=== PATIENT | female | born 1990 | race Caucasian/White ===

== ENCOUNTER 2023-02-02 12:35 | Emergency (ER) | payer OTHER, SELFPAY ==
[2023-02-02 12:45] VITALS: BP 136/88; PULSE 98; RESP 16; TEMP 37.1; O2SAT 99
--- NOTE | 2023-02-02 13:12 | ED.EAR ---
HPI - Ear Problem General Chief complaint: Ear Stated complaint: Ear Problem/Dizziness Time Seen by Provider: 02/02/23 13:12 Source: patient, RN notes reviewed and old records reviewed Mode of arrival: ambulatory Limitations: no limitations History of Present Illness HPI Narrative: 32 year old female presents to [facility] care with complaints of sinus congestion, facial pressure, and pressure to ears which she states that she has been dealing with for months. Patient reports that since last week she has been having increased pressure to ears and sinus congestion with dizziness and also some nausea. She has been taking Tylenol, Ibuprofen and also decongestant. Patient denies any vomiting or diarrhea or any body aches. MD Complaint: other (sinus congestion, ear pressure, facial pressure) Location: bilateral Duration: constant Severity: moderate Discharge from ear: Reports no Treatment prior to arrival: other (decogestant, tylenol and Ibuprofen) Related Data Allergies Allergy/AdvReac Type Severity Reaction Status Date / Time No Known Allergies Allergy Verified 02/02/23 12:57 Review of Systems Review of Systems: CONSTITUTIONAL: Denies fever, chills, or sweats. EYES: Denies visual changes, redness, or discharge. ENT: Reports rhinorrhea, congestion,no sore throat, positive for ear pressure CARDIOVASCULAR: Denies chest pain, palpitations, or edema. RESPIRATORY: Denies cough or dyspnea. GASTROINTESTINAL: Denies abdominal pain, positive for nausea,no vomiting, or diarrhea. GENITOURINARY: Denies dysuria or hematuria. SKIN: Denies rash or itching. MUSCULOSKELETAL: Denies back pain, joint pain, or myalgia. NEUROLOGIC: Denies headache, numbness, or weakness.reports some dizziness PSYCHIATRIC: Denies anxiety or depression. All systems reviewed & are unremarkable except as noted in HPI and below PMFSH Social History Social History (Updated 02/05/23 @ 08:35 by Aleta Thompson NP) Smoking status: Never smoker Alcohol intake: current Alcohol use details: social Substance use type: does not use Living arrangements: with family Gender identity (if verbalized by the patient): Female Comments At time of signature, agree with nursing past medical, surgical, social and family history. There is no relevant family history pertinent to the presenting complaint Exam Narrative: GENERAL: Well-appearing, well-nourished, and in no acute distress. HEAD: Normocephalic, atraumatic. EYES: PERRLA and EOMI.; ENT: Nares clear,clear rhinorrhea no epistaxis. Mucous membranes moist.TM's normal with dull light reflex, throat pink with no swelling post nasal discharge noted NECK: Supple.no lymphadenopathy CHEST: Clear to auscultation. No respiratory distress.SAO2 99% on room air HEART: Regular rate and rhythm. No murmur heard. Normal peripheral pulses. ABDOMEN: Soft, nontender, nondistended, normal active bowel sounds. EXTREMITIES: Normal range of motion. No edema. SKIN: Warm, dry, no rash. NEURO: No focal deficits. Alert and oriented x3. Course Course Emergency Course: Patient is aware of diagnosis, understands and agrees to treatment plan.? Anticipatory guidance given.? Patient agrees to follow-up as directed and is aware of reasons to seek care at the emergency department. Portions of this record may have been created with voice recognition software Level of Care: Express Care Visit Vital Signs Vital signs: Vital Signs Temperature 37.1 C 02/02/23 12:45 Pulse Rate 98 02/02/23 12:45 Respiratory Rate 16 02/02/23 12:45 Blood Pressure 136/88 02/02/23 12:45 Pulse Oximetry 99 02/02/23 12:45 Oxygen Delivery Room Air 02/02/23 12:45 Temperature 37.1 C 02/02/23 12:45 Pulse Rate 98 02/02/23 12:45 Respiratory Rate 16 02/02/23 12:45 Blood Pressure 136/88 02/02/23 12:45 Pulse Oximetry 99 02/02/23 12:45 Oxygen Delivery Room Air 02/02/23 12:45 Reviewed Medical Decision Making MDM Narrative Me
== END 2023-02-02 13:29 | disposition home or self-care (01) ==
PROVIDERS: Emergency Provider Registered Nurse
DX: J32.9 Chronic sinusitis, unspecified (principal); H69.93 Unspecified Eustachian tube disorder, bilateral
CPT/HCPCS: 99213; G0463

== ENCOUNTER 2023-03-23 06:12 | Emergency (ER) | payer OTHER, SELFPAY ==
[2023-03-23] VITALS (50 sets, daily range): BP systolic 96–121; BP diastolic 72–93; PULSE 94–125; RESP 11–30; TEMP 36.5; O2SAT 97–100
--- NOTE | ~2023-03-23 | CT_ITS ---
EXAMINATION: CTA chest PE protocol DATE: 03/23/2023 10:01 INDICATION: Chest pain. Tachycardia. TECHNIQUE: Computed tomography angiography (CTA) of the chest was performed with 100 mL Omnipaque-350 intravenous contrast timed to evaluate the pulmonary arteries. Coronal maximum intensity projection 3D-reconstructions were created by the technologist. Automated exposure control and iterative reconst ruction technique were employed. The dose-length product was 317.59 mGy-cm. COMPARISON: None. FINDINGS: The visualized portions of the lung bases demonstrate mild atelectasis. No pleural effusion . The heart size is normal. No pericardial effusion. There is no pulmonary embolus. There is mild tho racic spondylosis. IMPRESSION: 1. No pulmonary embolus. Reviewed, dictated and finalized at location A. M BUNDLER IMPRESSION: 1. No pulmonary embolus.
--- NOTE | ~2023-03-23 | XR_ITS ---
Portable chest x-ray Comparison: None Clinical History: Palpitations Findings: Lungs are clear, without focal consolidation or pleural effusion. Cardiomediastinal silho uette is unremarkable. Bones and soft tissues are unremarkable. Impression: Normal chest. Reviewed, dictated and finalized at location M. ULAR RADIOLOGIST Impression: Normal chest.
--- NOTE | 2023-03-23 06:19 | ECG_ITS ---
Measurements Intervals [place] Rate: 122 P: 53 MT: 148 QRS: 46 QRSD: 78 T: -19 QT: 250 QTc: 357 Interpretive Statements SINUS TACHYCARDIA NONSPECIFIC ST & T-WAVE ABNORMALITY- ANTEROLAT/INF LEADS ABNORMAL ECG NO PREVIOUS ECG AVAILABLE FOR COMPARISON Electronically Signed On 03-23-2023 6:46:27 CUSTOMER ENGINEERING SPECIALIST by Issa Corral D.O.
[2023-03-23 06:35] LABS: Basophils Percent Auto 0.3 % (0.2-1.2); Eosinophils Absolute Auto 0.2 K/mm3 (0-0.3); Eosinophils Percent Auto 2.4 % (0-4.4); Hematocrit 39.7 % (37.0-47.0); Immature Granulocyte Absolute 0.02 K/mm3 (0.00-0.031); Immature Granulocyte Percent A 0.3 % (0-0.5); Lymphocytes Absolute Auto 2.09 K/mm3 (0.9-3.2); Lymphocytes Percent Auto 30.9 % (18.3-44.2); Mean Corpuscular HGB Conc 32.7 g/dl (32-36); Mean Corpuscular Hemoglobin 29.1 pg (26-34); Monocytes Absolute Auto 0.4 K/mm3 (0.1-0.6); Monocytes Percent Auto 5.6 % (2.6-8.5); Neutrophils Absolute Auto 4.1 K/mm3 (1.3-6.7); Neutrophils Percent Auto 60.5 % (45.5-73.1); Platelet Count Result 289 k/mm3 (150-375); Red Blood Count 4.46 M/mm3 (4.2-5.4); White Blood Count 6.8 K/mm3 (4.5-10.0)
[2023-03-23 06:47] LABS: Alanine Aminotransferase 27 U/L (6-35); Albumin Level 4.2 g/dL (3.5-5.1); Alkaline Phosphatase 62 U/L (38-126); Anion Gap 8 mmol/L (8-16); Aspartate Amino Transferase 28 U/L (14-36); Bilirubin,Total 0.4 mg/dL (0.2-1.3); Blood Urea Nitrogen 11 mg/dL (7-17); Calcium 9.2 mg/dL (8.4-10.2); Carbon Dioxide 25 mmol/L (22-30); Chloride 106 mmol/L (98-107); Estimated CRCL calculation 106 ml/min; Estimated Glomerular Filt Rate > 60; Glucose 108 mg/dL (65-110); Lipase 133 U/L (23-300); Potassium 3.3 mmol/L (3.4-5.0); Sodium 139 mmol/L (137-145)
[2023-03-23 06:59] LABS: Troponin I 0.033 ng/mL (0.000-0.034)
[2023-03-23 07:07] LABS: INR 0.9
[2023-03-23 07:08] LABS: Partial Thromboplastin Time 28.7 SECONDS (22.3-36.8)
[2023-03-23] MEDS: SODIUM CHLORIDE 0.9% IV 1,000 ML 999 ML IV CONT (07:30)
--- NOTE | 2023-03-23 08:13 | ED.ARRPALP ---
HPI - Arrhythmia/Palpitations General Chief Complaint: Arrhythmia/Palpitations Stated Complaint: PALPITATIONS, SVT Time Seen by Provider: 03/23/23 06:51 History of Present Illness HPI narrative: 32 old female presents emergency department for evaluation of tachycardia. Patient states she has had some chest pressure for the last few days. Patient states that when she woke up this morning she was noted to have a rapid heart rate. Patient did call EMS. Patient was treated with 6 mg of Adenocard with no conversion but she was treated with 12 mg of IV Adenocard and patient converted back to norm normal sinus rhythm. Upon arrival to the emergency department patient is in sinus tach and is anxious appearing. Patient is still complaining of some chest pressure. Patient has no prior history of cardiac history patient has no prior history of PE or DVT. Patient denies any shortness of breath. Related Data Allergies Allergy/AdvReac Type Severity Reaction Status Date / Time No Known Allergies Allergy Verified 02/02/23 12:57 Review of Systems Review of Systems: All systems reviewed & are unremarkable except as noted in HPI and below PMFSH Social History Social History (Updated 02/05/23 @ 08:35 by Aleta Thompson NP) Smoking status: Never smoker Alcohol intake: current Alcohol use details: social Substance use type: does not use Living arrangements: with family Gender identity (if verbalized by the patient): Female Exam Narrative: APPEARANCE: Well appearing, no pain, no distress, well-nourished. HEAD: normocephalic, atraumatic. EYES: PERRLA/EOMI, conjunctivae clear. NOSE: Normal no drainage EARS:TMS clear with good light reflex. THROAT: Pharynx clear, no exudate. NECK: Supple. No adenopathy, no masses. RESPIRATORY: Airway patent, respirations nonlabored. Clear to auscultation bilaterally, no rales, rhonchi, wheezing. CARDIOVASCULAR: Regular rate and rhythm without murmurs rubs or gallops. ABDOMINAL: Soft, nontender, nondistended, normal bowel sounds MUSCULOSKELETAL: Moves all extremities. Strength/ROM intact, No edema, No calf tenderness. NEURO: Alert. Cranial nerves II through XII intact. Grossly intact SKIN: Warm, dry. Normal Color Course Course Emergency Course: [age] old female presenting to the emergency department for evaluation of rapid heart rate. Patient's presumed SVT was resolve with Adenocard by EMS. Upon arrival to the emergency department patient was still having some sinus tach but this did improve with rehydration and with Ativan. Patient's initial troponin was at the high end of normal of 0.033. Patient's initial D-dimer was 0.41 but due to clinical discern for a PE CTA study was ordered that showed no evidence of pulmonary embolism. Patient's 3 hour troponin was elevated at 0.083. On re-evaluation patient denies any chest pain and states she does still have some epigastric pressure with no tenderness to palpation. I discussed the case with Cardiology and with the patient having no significant risk factors they were comfortable with the patient being started on a beta-lillian and having outpatient follow-up with Cardiology. They felt that having the heart rate in the 200s would be enough sustained tachycardia to cause a bump in her troponin. Patient was updated on the results the workup and on discussion with Cardiology and patient was encouraged to have close follow-up. All questions concerns were addressed. Patient will also be started metoprolol b.i.d. Vital Signs Vital signs: Vital Signs Temperature 97.7 F 03/23/23 06:11 Pulse Rate 117 H 03/23/23 06:11 Respiratory Rate 17 03/23/23 06:11 Blood Pressure 119/93 H 03/23/23 06:11 Pulse Oximetry 100 03/23/23 06:11 Oxygen Delivery Room Air 03/23/23 06:11 Temperature 97.7 F 03/23/23 06:11 Pulse Rate 94 03/23/23 12:42 Respiratory Rate 16 03/23/23 12:42 Blood Pressure 110/89 03/23/23 12:42 Pulse Oxi
[2023-03-23] MEDS: LORazepam INJ (*CRX) 2 MG/ML VIAL 1 MG IV PUSH (08:55)
[2023-03-23 09:23] LABS: D Dimer 0.41 ug/mL (<0.48)
[2023-03-23 10:59] LABS: Troponin I 0.083 ng/mL (0.000-0.034)
--- NOTE | 2023-03-23 11:19 | ECG_ITS ---
Measurements Intervals [place] Rate: 104 P: 43 [place]: 148 QRS: 49 QRSD: 79 T: 11 QT: 314 QTc: 413 Interpretive Statements SINUS TACHYCARDIA NONSPECIFIC ST & T-WAVE ABNORMALITY- ANT/INF LEADS BORDERLINE ECG COMPARED TO ECG 03/23/2023 06:16:25 HEART RATE HAS DECREASED Electronically Signed On 03-23-2023 11:41:22 STOCK ANALYST by Issa Corral D.O.
--- NOTE | 2023-03-23 11:22 | PC.NURSE ---
lunch tray given to pt
[2023-03-23] MEDS: METOPROLOL TARTRATE 25 MG TABLET PO (12:06)
== END 2023-03-23 12:42 | disposition home or self-care (01) ==
PROVIDERS: Emergency Medicine; Emergency Provider Emergency Medicine
DX: R00.0 Tachycardia, unspecified (principal); R00.2 Palpitations
CPT/HCPCS: 36415; 71045; 71275; 80053; 81025; 83690; 84484; 85025; 85380; 85610; 85730; 93005; 96361; 96374; 99284; A9270; J2060; J7030; Q9967

== ENCOUNTER 2024-03-17 08:02 | Emergency (ER) | payer OTHER, SELFPAY ==
--- OUTSIDE RECORDS SUMMARY | 2024-03-17 08:05 | XMS_ITS | Clinical Summary ---
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 Gender Identity Not on file Sexual Orientation Not on file Plan of Treatment Health Maintenance Due Date Last Done Comments Hepatitis C Virus (HCV) Screening 1988 Hepatitis B Immunization (1 of 3 - 19+ 3-dose series) 11/07/2007 Pap Smear 2009 Cervical Cancer Screening (CCS) 2018 HPV/Cotest 2018 Influenza Immunization (#1) 2023 12/10/2021 SARS-COV-2 Immunization (2023- season) 2023 Respiratory Syncytial Virus (RSV) Immunization (Adult) (1 - 1-dose 75+ series) 11/07/2063 DTaP/Tdap/Td Immunization Discontinued 2021, 08/07/2018 Meningococcal Immunization (ACWY) Aged Out No longer eligible based on patient's age to complete this topic Pneumococcal Immunization Combined Aged Out No longer eligible based on patient's age to complete this topic Rotavirus Immunization Aged Out No lo nger eligible based on patient's age to complete this topic Insurance [employer]
--- OUTSIDE RECORDS SUMMARY | 2024-03-17 08:05 | XMS_ITS | Clinical Summary ---
Author Organization [facility] Address [address] [place] [address] Care Team Providers Care Airborne And Air Delivery Specialist Name Role Phone Ana Maria Parkinson MD Primary Care Provide r Choco Castaneda PT Unavailable Unavailab le Allergies Active Allergy Reactions Criticality Noted Date Comments Pineapple Swollen tongue High 2020 Medications metoprolol tartrate (LOPRESSOR) 25 mg immediate release tablet Take 1 tablet (25 mg total) by mouth 2 (two) times a day 180 tablet 3 04/18/2023 Active aspirin 81 mg enteric coated tablet Take 1 tablet (81 mg total) by mouth daily 90 tablet 09/21/2023 Active FLUoxetine 10 mg capsuleIndicati ons:PMS (premenstrual syndrome) TAKE ONE CAPSULE BY MOUTH EVERY DAY 90 capsule 01/11/2024 Active Active Problems Problem Noted Date Diagnosed Date 12/14/2023 Antepartum multigravida of advanced maternal age 1011/30/2023 Overview (01/26/2024): Given AMA and other moderate risk factor of BMI >30, recommend ASA 81 mg from 12 weeks until delivery. Considering NIPT - declines. PMS (premenstrual syndrome) 07/14/2023 Overview (11/30/2023): Daily fluoxetine. Elevated liver enzymes 07/06/2023 Overview (12/28/2023): Labs 06/30/23 - AST 51, ALT 98. Recheck 12/28/23 - AST 20. ALT 8. Negative hepatitis panel. Assessment & Plan (07/06/2023 4:58 PM CDT): New concern Not at goal Ordered Hepatitis acute panel, iron levels, hepatitis function panel If liver enzymes are still elevated on repeat labs we will get an ultrasound of the liver as well Follow-up pending results Left elbow pain 05/04/2023 Assessment & Plan (07/06/2023 4:43 PM CDT): Chronic S/p steroid pack PT and xrays No improvement Will send for MRI and referral to orthopedics F/u prn Assessment & Plan (05/04/2023 4:28 PM CDT): Chronic Worsening New concern Possible tendinitis Sent steroid pack for symptomatic relief Referral to physical therapy and xray of the left elbow F/u in 2 months, if no improvement will get an mri SVT (supraventricular tachycardia) 03/30/2023 Overview (11/30/2023): 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 Followed by cardiology - metoprolol. Recommend ASA 81 until 3 months post ablation. Assessment & Plan (05/04/2023 7:18 AM CDT): Stable Continue following with cardiology for management Palpitations 03/30/2023 Dizziness 05/10/2022 Encounter for psychiatric assessment 03/09/2022 Assessment & Plan (03/09/2022 6:28 PM WEAPONS ENGINEER): Psychiatric assessment was completed during the appointment today. All the paperwork completed by the patient was reviewed by me with the patient. All of the questions posed to me by the patient were answered. A treatment plan was developed in line with the information presented to me. Refer to specific problems for additional information regarding assessment and treatment recommendations. Atypical chest pain 02/24/2022 Assessment & Plan (02/24/2022 10:45 PM WEAPONS ENGINEER): Likely msk ekg in the past negative Will place referral to cardio for stress test F/u prn Tendinitis of left pectoralis major 09/28/2021 Assessment & Plan (09/28/2021 9:02 PM CDT): Continue with tylenol and and heat Physical therapy has not helped Will get an MRI. Will consider referral to pain management as the patient is and limited on medications. F/u prn Swollen lymph nodes 09/28/2021 Assessment & Plan (09/28/2021 9:09 PM CDT): Not appreciated on exam Likely from hormonal changes or from shaving Will continue to monitor for now If it becomes more persistent and prominent will consider imaging and Baseline labs Pain of right upper extremity 04/29/2021 Assessment & Plan (05/07/2021 10:40 AM CDT): No improvement even with flexeril Xray unremarkable Referral to physical therapy If no improvement will do mri and consider referral to ortho For forearm weakness also recommend physical therapy. If no improvement can consider EMG Assessment & Plan (04/29/2021 10:35 AM WEAPONS ENGINEER): Xray to evaluate for rotator cuff tear Flexeril for 7 days at night Continue with naproxen 500mg bid for a week with food Tylenol during the day if pain returns F/u in 1 week Anxiety 02/27/2021 Overview (06/15/2021): Received Xanax from PCP, only took x 1. Improved some with therapy sessions. Discussed risks/benefits of SSRIs in , which she will consider. Assessment & Plan (05/04/2023 4:14 PM CDT): Chronic Stable Continue with fluoxetine 10mg daily Assessment & Plan (03/09/2022 6:27 PM WEAPONS ENGINEER): Chronic condition with persistent symptoms. Medication changes today: None Insight-oriented, supportive counseling provided. Continued management as discussed Assessment & Plan (02/24/2022 2:40 PM WEAPONS ENGINEER): Continue with cognitive behavioral therapy Assessment & Plan (02/27/2021 9:04 AM WEAPONS ENGINEER): Worsening Referral to psychiatry for cognitive behavioral therapy Take xanax 0.25mg prn for panic attacks F/u prn Pain of left upper extremity 02/27/2021 Assessment & Plan (02/27/2021 9:04 AM WEAPONS ENGINEER): Likely musculoskeletal from carrying son, progressing Recommend alternating between ice and heat, naproxen 500mg bid for 7 days then prn Given stretching exercises and information on managing shoulder pain If no improvement can consider physical therapy F/u prn Acute left-sided low back pain without sciatica 11/25/2020 Assessment & Plan (11/25/2020 12:04 PM CDT): Likely msk 2/2 heavy lifting Instructed to take naproxen 500 mg twice a day with food. Cyclobenzaprine 5 mg at night for the next 7 days Referral for physical therapy given Follow-up as needed Wellness examination 11/25/2020 Assessment & Plan (05/04/2023 4:29 PM CDT): Ordered CBC, cmp, lipid a1c Pap smear follows with ob F/u in 1 year for annual Assessment & Plan (02/24/2022 10:46 PM WEAPONS ENGINEER): Ordered CBC, cmp, lipid, TSH w/ reflex to t4 Pap smear follows with ob F/u in 1 year for annual Assessment & Plan (11/25/2020 12:06 PM CDT): Ordered CBC as previous labs showed anemia, lipid, HIV, hep c, TSH, and free t4 Pap smear done 2 years ago within normal limits as per patient Tdap likely given 2 years ago as patient was at that time Flu patient declined Estimated Date of Delivery Comme nts Yes 06/21/2024 Based on last me nstrual period of 09/15/2023 (Exact Date) Resolved Problems Problem Noted Date Diagnosed Date Resolved Date Viral URI with cough 02/24/2022 024 Assessment & Plan (02/24/2022 10:44 PM WEAPONS ENGINEER): New worsening Covid, flu and strep negative Recommend fluids, rest, humidification if needed. She was instructed to call back if symptoms do not improved in a week, or if worsening ones arise. Education provided. 39 weeks gestation of 01/11/2022 02/25/2022 Anemia during in third trimester 10/29/2021 02/25/2022 Antepartum anemia 07/23/2018 12/11/2018 GBS bacteriuria 07/23/2018 12/11/2018 Overview (07/23/2018): Penicillin in labor Encounters Date Type Department Care Team Description 03/07/2024 8:15 AM WEAPONS ENGINEER Therapy [facility] [place] [address] Carrie Griffith, PT Female genital prolapse, unspecified type 03/07/2024 Plan of Care Documentation [facility] [place] [address] 02/24/2024 11:00 AM WEAPONS ENGINEER Office Visit [facility] [address] [place] [address] Kassy Rodriguez MD care, subsequent , second trimester (Primary Dx) 02/24/2024 Orders Only [facility] [address] [place] [address] Kassy Rodriguez MD Encounter for supervision of other normal , third trimester (Primary Dx); 28 weeks gestation of 02/07/2024 8:30 AM WEAPONS ENGINEER Ancillary Procedure [facility] [address] [place] [address] Encounter for maternal care for excessive growth in second trimester, single or unspecified fetus; 20 weeks gestation of 01/26/2024 9:20 AM WEAPONS ENGINEER Routine [facility] [address] [place] [address] Kassy Rodriguez MD care, subsequent , second trimester (Primary Dx) 01/26/2024 Orders Only [facility] [address] [place] [address] Kassy Rodriguez MD Encounter for maternal care for excessive growth in second trimester, single or unspecified fetus (Primary Dx); 20 weeks gestation of 01/09/2024 Telephone [facility] [address] [place] [address] Kassy Rodriguez MD Med Refill 12/29/2023 Telephone [facility] [address] [place] [address] Kassy Rodriguez MD 12/28/2023 8:10 AM WEAPONS ENGINEER Lab [facility] [address] [place] [address] Elevated liver enzymes; SVT (supraventricular tachycardia) (HCC); Pre-procedure lab exam; care, subsequent , first trimester; 13 weeks gestation of 12/26/2023 9:30 AM WEAPONS ENGINEER Routine [facility] [address] [place] [address] Kassy Rodriguez MD care, subsequent , second trimester (Primary Dx); Elevated liver enzymes 12/26/2023 Orders Only [facility] [address] [place] [address] Kassy Rodriguez MD Female genital prolapse, unspecified type (Primary Dx) from Last 3 Months Immunizations Name Administration Dates Next Due Influenza, Quadrivalent, Spl it, Intramuscular 12/30/2015 Influenza, Quadrivalent, Spl it, Preservative Free, Intramuscular 12/10/2021 Influenza, Unspecified 05/04/2023(Deferr ed: Patient Refused),09/28/2021(Deferred: Patient Refused),05/07/2021(Deferred: Patient Refused),04/29/2021(Deferred: Patient Refused),02/21/2021(Deferred: Patient Refused),11/25/2020(Deferred: Patient Refused),09/21/2020(Deferred: Patient Refused),09/21/2020(Deferred: Patient Refused),09/21/2020(Deferred: Patient Refused),09/21/2020(Deferred: Patient Refused),09/22/2019(Deferred: Patient Refused) Tdap 10/28/2021,08/07/2018,06/03/2016 Surgical History Surgery Date Site/Laterality Comments OTHER SURGICAL HISTORY No pertinent surgical hx NO PAST SURGERIES Medical History Medical History Date Comments Childhood asthma Anxiety SVT (supraventricular tachycardia) (HCC) Family History Medical History Relation Name Comments Alcohol abuse Father Sancho Depression Father Sancho Heart attack Father Sancho Heart disease Father Sancho Hypertension Father Sancho Memory loss Father Sancho Stroke Father Sancho Heart attack Mother Kavitha Heart disease Mother Kavitha Hypertension Mother Kavitha Brain cancer Other P 1st cousin Cancer, brain; Cause of : Cancer, brain Relation Name Status Comments Father Sancho Mother Kavitha Other P 1st cousin Social History Tobacco Use Types Packs/Day Years Used Date Smoking Tobacco: Never Smokeless Tobacco: Never Tobacco Cessation:Counseling Given: Not Answered Alcohol Use Standard Drinks/Week Comments Yes 0 (1 standard drink = 0.6 oz pur e alcohol) occasional / rare Social Connection and Isolat ion Panel [NHANES] Answer Date Recorded In a typical week, how many times do you talk on the phone with family, friends, or neighbors? Never 01/11/2022 How often do you get togethe r with friends or relatives? Once a week 01/11/2022 How often do you attend chur ch or rastafari services? 1 to 4 times per year 01/11/2022 Do you belong to any clubs o r organizations such as orthodoxy groups, unions, fraternal or athletic groups, or school groups? Yes 01/11/2022 How often do you attend meet ings of the clubs or organizations you belong to? More than 4 times per year 01/11/2022 Are you , , di vorced, , never , or living with a partner? 01/11/2022 AUDIT-C Answer Date Recorded Q1: How often do you have a drink containing alc ohol? Never 01/11/2022 Average Number of Drinks Not on file 022 Frequency of Binge Drinking Not on file 12/23 Overall Financial Resource Strain (CARDIA) Answe r Date Recorded How hard is it for you to pa y for the very basics like food, housing, medical care, and heating? Not hard at all 12/26/2023 PHQ-2 Answer Date Recorded PHQ-2 Total Score (If total score is 3 or more points, staff should administer the PHQ-9) 0 05/04/2023 [facility] - Occupational Stress Questionnaire Answer Date Recorded Do you feel stress - tense, restless, nervous, or anxious, or unable to sleep at night because your mind is troubled all the time - these days? Only a little 01/11/2022 Exercise Vital Sign Answer Date Recorde d On average, how many days pe r week do you engage in moderate to strenuous exercise (like a brisk walk)? 1 day 01/11/2022 On average, how many minutes do you engage in exercise at this level? 20 min 01/11/2022 Hunger Vital Sign Answer Date Recorded Within the past 12 months, y ou worried that your food would run out before you got the money to buy more. Never true 12/26/19 24 Within the past 12 months, t he food you bought just didn't last and you didn't have money to get more. Never true 12/26/2023 PRAPARE - Transportation Answer Date Re corded In the past 12 months, has l ack of transportation kept you from medical appointments or from getting medications? No 05/2023 In the past 12 months, has l ack of transportation kept you from meetings, work, or from getting things needed for daily living? No 12/26/2023 Housing Stability Vital Sign Answer Romero e Recorded In the last 12 months, was t here a time when you were not able to pay the mortgage or rent on time? No 01/11/2022 In the last 12 months, how many places have you lived? 1 01/11/2022 In the last 12 months, was t here a time when you did not have a steady place to sleep or slept in a snf (including now)? No 01/11/2022 Housing Stability Vital Sign Answer Romero e Recorded In the last 12 months, was t here a time when you were not able to pay the mortgage or rent on time? No 12/26/2023 In the past 12 months, how m any times have you moved where you were living? 1 12/26/2023 At any time in the past 12 m [facility], were you homeless or living in a snf (including now)? No 12/26/2023 Personal Safety Answer Date Recorded Have you ever been in or are you currently in a harmful physical or emotional relationship or is someone making you feel afraid or unsafe? Denies 09/21/2023 Estimated Date of Delivery Comme nts Yes 06/21/2024 Based on last me nstrual period of 09/15/2023 (Exact Date) Sex and Gender Information Value Date Recorded Sex Assigned at Not on file Legal Sex Female 8:51 PM WEAPONS ENGINEER Gender Identity Not on file Sexual Orientation Not on file Occupation Industry Job Start Date Job End Date N/A Not on file Not on file Not on file Obstetrics History Para Term AB IAB SAB Ectopic Multiple Livin g Live Births 5 3 3 1 1 0 3 3 Date Outcome GA Total Labor Labor/2nd/3rd Weight Sex Type Anes PTL Yamilet A1 A5 Name Clin 2016 Term 39w 1d 3.118 kg (6 lb 14 oz) M Vag-S pont Complications:None 2018 Term 40w 0d 4h 10m 3h 45m/0h 21m/0h 04m 3.21 kg (7 lb 1.2 oz) M Vag-S pont Epidur al N Livin g 9 9 NILES BRANDT Rachel Elizab eth, MD Complications:None Delivery Location:This [facility] ([facility] 2021 Term 39w 5d 0h 26m 0h 13m/0h 08m/0h 05m 3.409 kg (7 lb 8.3 oz) M Vag-S pont Epidur al N Livin g 9 9 NILES BRANDT Rachel Elizab eth MD Complications:None Delivery [facility] SAB Current Comments 1. 2016 - SROM, labor. 2' mi dline and right vaginal lacs. 2. 2018 - elective pitocin induction 3. 2021 - elective pitocin induction 4. 2023 - chemical . Summary Episode Dates Number of Fetuses Estimated Date of Delivery 11/30/2023 - Present (03/17/2024) 06/21/2024 (set by Kassy Rodriguez MD on 11/30/2023 based on Last Menstrual Period on 09/15/2023 (Exact Date)) Dating Summary Based On ELIEZER GA Diff Last Menstrual Period on 09/15/2023 (Exact Date) 06/21/2024 Working Ultrasound on 11/30/2023 06/20/2024 +1d GA:11w0d Vitals Pregravid Weight Height TWG (As of 03/17/2024) Pregrav id BMI 95.3 kg (210 lb) 1.814 kg (4 lb) Notes Progress Notes - Office Visi t - 02/24/2024 - GA:23w1d 02/24/2024 - 23w1d - Kassy Rodriguez MD Reviewed sono 02/06 - breech, anterior placenta, OSWALD 12.4, EFW 407 g (73%). Feeling well overall. Scheduled to see PT next week. 1 hr GTT ordered for next visit. ONS ENGINEER Progress Notes - Routine Pre eric - 01/26/2024 - GA:19w0d 01/26/2024 - 19w0d - Kassy Rodriguez MD Has felt some flutters. Since +HCG wakes early childhood educator aide with vivid dreams and sometimes has difficulty falling back asleep. Advised Unisom. PT reached out to her - still working on scheduling. Anatomy scan ordered for 20 weeks. ONS ENGINEER Progress Notes - Routine Pre - 12/26/2023 - GA:14w4d 12/26/2023 - 14w4d - Kassy Rodriguez MD Reviewed OB labs - type and screen not completed -to lab after visit today for same. Also reviewed PCP notes, elevated liver enzymes in June: ALT 98, AST 51. Will recheck hepatic function panel now for baseline in . Declines NIPT. Continues daily baby ASA. Had called c/o possible UTI. Now notes bleeding was likely vaginal from reducing prolapse. Elects for referral back to PFPT for same. ONS ENGINEER Progress Notes - Initial Pre - 11/30/2023 - GA:10w6d 11/30/2023 - 10w6d - Kassy Rodriguez MD New OB -- ELIEZER 06/21 by definite LMP c/w sono today. Feeling well overall. OB labs ordered with G/CT. -- AMA. Discussed potential risks including PIH, GDM, aneuploidy and genetic screening options. Given AMA and other moderate risk factor of BMI >30, recommend ASA 81 mg from 12 weeks until delivery. She will consider NIPT. -- AVNRT. Followed by cardiology. Feels much better post ablation 09/21/23. Continues metoprolol. Plan 3rd trimester growth ultrasound. -- h/o PMS. Mood has been well controlled on fluoxetine, the best she has felt in a while. Discussed risks of poorly controlled maternal mental health v medication exposure (pulm HTN, SANTI). Plan to continue current management. Last Filed Vital Signs Vital Sign Reading Time Taken Comments Blood Pressure 100/64 02/24/2024 10:42 AM WEAPONS ENGINEER Pulse 76 12/14/2023 9:46 AM CDT Temperature 36.2 ??C (97.2 ??F) 09/21/2023 10:08 AM C DT Respiratory Rate 16 10/20/2023 9:12 AM CDT Oxygen Saturation 99% 10/20/2023 9:12 AM CDT Inhaled Oxygen Concentration - - Weight 97.1 kg (214 lb) 02/24/2024 10:42 AM WEAPONS ENGINEER Height 168.9 cm (5' 6.5 ) 12/14/2023 9:46 AM CDT Body Mass Index 34.02 12/14/2023 9:46 AM CDT Plan of Treatment Health Maintenance Due Date Last Done Comments Varicella Vaccines (1 of 2 - 13+ 2-dose series) 2001 Hepatitis B Screening 2006 Cervical Cancer Screening 12/30/2021 12/30/2020 Influenza Vaccine (#1) 2023 12/10/2021, 2015 Depression Screening 05/03/2024 05/04/2023, 02/24/2022, 01/04/2022, Additional history exists Regular Well Visit/Exam 18-64 05/03/2024 05/04/2023, 03/30/2023, 02/24/2022, Additional history exists DTaP/Tdap/Td Vaccine (4 - Td or Tdap) 10/29/2031 10/28/2021, 08/07/2018, 06/03/2016 Hepatitis C Screening Completed 12/28/2023 , 11/30/2023, 06/15/2021, Additional history exists HPV Vaccines Aged Out No longer eligi ble based on patient's age to complete this topic Pneumococcal vaccine <65 Aged Out No longer eligible based on patient's age to complete this topic Medical Devices Implanted Type Area Bar Finish Operator Device Identifier Shelf Expiration Date Model / Serial / Lot [facility] Vascade Mvp 6-12fr Venous Closure [id number] - [id number] Implanted:Qty: 1 on 09/21/2023 by Eran Batista MD at [facility] 05/10/2025 [id number] / / [id number] [facility] Vascade Mvp 6-12fr Venous Closure [id number] - [id number] Implanted:Qty: 1 on 09/21/2023 by Eran Batista MD at [facility] 05/10/2025 [id number] / / [id number] [employer] Device Vascular Closure Femoral Artery Bioabsorbable Dual Method Vascade 6-7fr Collagen [id number] - [id number] Implanted:Qty: 1 on 09/21/2023 by Eran Batista MD at [facility] 04/19/2025 [id number] / / [id number] [employer] Device Closure Vascade Od5 Fr Femoral Artery [id number] - [id number] Implanted:Qty: 1 on 09/21/2023 by Eran Batista MD at [facility] 04/26/2025 [id number] / / [id number] Procedures Procedure Name Priority Date/Time Associated Diagnosis Comments POCT URINE GLUCOSE AND PROTEIN Routine 02/24/2024 10:48 AM WEAPONS ENGINEER care, subsequent , second trimester US OB 14 WEEKS OR OVER Schedule Routine, Read Routine (OP Routine) 02/07/2024 9:10 AM WEAPONS ENGINEER Encounter for maternal care for excessive growth in second trimester, single or unspecified fetus 20 weeks gestation of POCT URINE GLUCOSE AND PROTEIN Routine 01/26/2024 9:19 AM WEAPONS ENGINEER care, subsequent , second trimester EGFR Routine 12/28/2023 8:08 AM WEAPONS ENGINEER SVT (supraventricular tachycardia) (HCC) Pre-procedure lab exam DIFFERENTIAL AUTO Routine 12/28/2023 8:0 8 AM WEAPONS ENGINEER SVT (supraventricular tachycardia) (HCC) Pre-procedure lab exam TYPE AND SCREEN Routine 12/28/2023 8:08 AM WEAPONS ENGINEER care, subsequent , first trimester 13 weeks gestation of BASIC METABOLIC PANEL Routine 12/28/2023 8:08 AM WEAPONS ENGINEER SVT (supraventricular tachycardia) (HCC) Pre-procedure lab exam CBC WITH AUTO DIFFERENTIAL Routine 12/28/2023 8:08 AM WEAPONS ENGINEER SVT (supraventricular tachycardia) (HCC) Pre-procedure lab exam HEPATIC FUNCTION PANEL Routine 12/28/2023 8:08 AM WEAPONS ENGINEER Elevated liver enzymes IRON PROFILE W/ IBC Routine 12/28/2023 8 :08 AM WEAPONS ENGINEER Elevated liver enzymes HEPATITIS PANEL, ACUTE Routine 12/28/2023 8:08 AM WEAPONS ENGINEER Elevated liver enzymes POCT URINE GLUCOSE AND PROTEIN Routine 12/26/2023 9:23 AM WEAPONS ENGINEER care, subsequent , second trimester PAP WITH REFLEX TO HIGH RISK HPV Routine 12/30/2020 10:28 AM WEAPONS ENGINEER from Last 3 Months or Most Recently Relevant to Health Maintenance Results * POCT urine glucose and protein (02/24/2024 10:48 AM WEAPONS ENGINEER) Glucose, ur, POC Negative Negative MG/DL Protein, ur, POC Negative Negative Lot Number [id number] Urine 02/24/2024 10:4 8 AM WEAPONS ENGINEER Kassy Rodriguez MD POINT OF CARE TEST OR DERABLES Final Result * US Ob 14 Weeks Or Over (02/07/2024 9:10 AM WEAPONS ENGINEER) Anatomical Region Laterality Modality Abdomen N/A Ultrasound 02/13/2024 11:0 9 AM WEAPONS ENGINEER Narrative 02/13/2024 11:23 AM WEAPONS ENGINEER EXAM DESCRIPTION: ?? US OB 14 WEEKS OR OVER REASON FOR STUDY: ?? Check measurements and fluid levels, Check measurements and fluid levels ?? S>D anatomy scan ? TECHNIQUE: Complete ??transabdominal ??obstetric ultrasound was performed. COMPARISON: None. FINDINGS: Estimated clinical age is 20 weeks 5 days with an ELIEZER 06/21/2024. Single intrauterine with breech presentation. Placenta is anterior. ??There is 3.2 cm between the inferior margin the placenta and the internal os, in the radiology literature considered low lying. heart rate is 144 beats per minute. The amniotic fluid index is 12.4 cm. S = Seen without gross abnormality A = Abnormal NC = Not clearly seen NS = Not seen on current exam PS = Previously seen anatomic survey: Intracranial anatomy: ?? S Nose/lips: ?? S Spine: ?? S Four-chamber heart: ?? S LVOT: S RVOT: S Diaphragm: ?? S Stomach: ?? S Kidneys: ?? S ??bilateral renal pelves measured at 0.4 cm which is within the normal range for age. Bladder: ?? S 3-vessel cord: ?? S cord insertion: ?? S Upper extremities: ?? S Lower extremities: ?? S measurements: Biparietal diameter: 4.95 cm corresponding to 21 weeks 0 days. Head circumference: 19.07 cm corresponding to 21 weeks 2 days. Abdominal circumference: 15.92 cm corresponding to 21 weeks 0 days. Femur length: 3.60 cm corresponding to 21 weeks 3 days. Estimated age based on this ultrasound is 21 weeks 0 days with an ELIEZER 06/19/2024. The estimated weight is 407 g +/-61 g (14 ounces +/-2 ounces) which corresponds to 73rd percentile. Ratios: FL/AC: ?? 22.61 ??(20-24) HC/AC: ?? 1.20 ??( 1.06 - 1.25 ) The cervix is long and closed measuring 6.78 cm. IMPRESSION: 1. ?? Single intrauterine with breech presentation. 2. ?? Estimated age based on this ultrasound 21 weeks 0 days with ELIEZER 06/19/2024. 3. ?? Estimated weight 73rd percentile. 4. ?? Placenta is anterior with 3.2 cm between the inferior margin the placenta and the internal os. 5. ?? Amniotic fluid index 12.4 cm. THIS IS AN ELECTRONICALLY VERIFIED FINAL REPORT 02/13/2024 11:23 AM - Electronically signed by ??Jake Giraldo M.D. CH: D: ??02/13/2024 11:23 AM T: ??02/13/2024 11:23 AM Report ID: [id number] Reading Location: ??[id number] Procedure Note Jake Giraldo Jr., MD - 02/13/2024 EXAM DESCRIPTION: US OB 14 WEEKS OR OVER REASON FOR STUDY: Check measurements and fluid levels, Checkmeasurements and fluid levels S>D anatomy scan TECHNIQUE: Complete transabdominal obstetric ultrasound was performed. COMPARISON: None. FINDINGS: Estimated clinical age is 20 weeks 5 days with an ELIEZER 06/21/2024. Single intrauterine with breech presentation. Placenta is anterior. There is 3.2 cm between the inferior margin the placenta and the internal os, in the radiology literature considered low lying. heart rate is 144 beats per minute. The amniotic fluid index is 12.4 cm. S = Seen without gross abnormality A = Abnormal NC = Not clearly seen NS = Not seen on current exam PS = Previously seen anatomic survey: Intracranial anatomy: S Nose/lips: S Spine: S Four-chamber heart: S LVOT: S RVOT: S Diaphragm: S Stomach: S Kidneys: S bilateral renal pelves measured at 0.4 cm which is withinthe normal range for age. Bladder: S 3-vessel cord: S cord insertion: S Upper extremities: S Lower extremities: S measurements: Biparietal diameter: 4.95 cm corresponding to 21 weeks 0 days. Head circumference: 19.07 cm corresponding to 21 weeks 2 days. Abdominal circumference: 15.92 cm corresponding to 21 weeks 0 days. Femur length: 3.60 cm corresponding to 21 weeks 3 days. Estimated age based on this ultrasound is 21 weeks 0 days with an ELIEZER 06/19/2024. The estimated weight is 407 g +/-61 g (14 ounces +/-2 ounces) which corresponds to 73rd percentile. Ratios: FL/AC: 22.61 (20-24) HC/AC: 1.20 ( 1.06 - 1.25 ) The cervix is long and closed measuring 6.78 cm. IMPRESSION: 1. Single intrauterine with breech presentation. 2. Estimated age based on this ultrasound 21 weeks 0 days with ELIEZER 06/19/2024. 3. Estimated weight 73rd percentile. 4. Placenta is anterior with 3.2 cm between the inferior margin theplacenta and the internal os. 5. Amniotic fluid index 12.4 cm. THIS IS AN ELECTRONICALLY VERIFIED FINAL REPORT 02/13/2024 11:23 AM - Electronically signed by Jake Giraldo M.D. CH: BJ Report ID: [id number] Reading Location: [id number] Kassy Rodriguez MD IMG OB US PROCEDURES Final Result * POCT urine glucose and protein (01/26/2024 9:19 AM WEAPONS ENGINEER) Glucose, ur, POC Negative Negative MG/DL Protein, ur, POC Negative Negative Lot Number [id number] Urine 01/26/2024 9:19 AM WEAPONS ENGINEER Kassy Rodriguez MD POINT OF CARE TEST OR DERABLES Final Result * eGFR (12/28/2023 8:08 AM WEAPONS ENGINEER) eGFR >90 >=60 mL/min/1. 73 m2 Comment: Interpretive Data Reference Interval Normal ?>/= 90 mL/min/1.73m2 Mildly decreased* ? 60 - 89 mL/min/1.73m2 Mildly to moderately decreased ?45 - 59 mL/min/1.73m2 Moderately to severely decreased ??30 - 44 mL/min/1.73m2 Severely decreased ?15 - 29 mL/min/1.73m2 Kidney Failure ?< 15 ??mL/min/1.73m2 *Relative to young adult level Estimated glomerular filtration rate is determined by the 2020 CKD-EPI equation recommended by the National Kidney Foundation (A Unifying Approach to GFR Estimation: Recommendations of the NKF-ASK Task Force on Reassessing the Inclusion of Race in Diagnosing Kidney Disease, JASN 2020). The CKD-EPI equation should not be used for patients with unstable renal function and has not been validated in children and those over 70. Current interpretive data was last reviewed 2020. Testing performed by: [address] [address] Blood 12/28/2023 8:08 AM WEAPONS ENGINEER 12/28/2023 12:23 PM WEAPONS ENGINEER Eran Batista MD LAB BLOOD ORDERABLES F inal Result [address] Department [place] [address] * Differential, auto (12/28/2023 8:08 AM WEAPONS ENGINEER) Neutrophil abs 6.0 1.5 - 6.5 K/cumm Comment:Testing performed by : [address] [address] Imm gran abs 0.0 0.0 - 0.1 K/cumm CERNER Comment:Testing performed by : [address] [address] Lymphocyte abs 1.8 0.8 - 3.3 K/cumm CERNER Comment:Testing performed by : [address] [address] Monocyte abs 0.4 0.2 - 0.8 K/cumm CERNER Comment:Testing performed by : [address] [address] Eosinophil abs 0.1 0.0 - 0.5 K/cumm CERNER Comment:Testing performed by : [address] [address] Basophil abs 0.0 0.0 - 0.1 K/cumm CERNER Comment:Testing performed by : [address], [address] Neutrophil pct 72.2 % CERNER Comment: Interpretive Data Percent cell count reference ranges are not reported, since discordance with absolute values may lead to misinterpretation of CBC data. Current Interpretive Data was last revised on 2017. Testing performed by: [address] [place]., [address] Imm gran pct 0.4 % CERNER Comment: Interpretive Data Percent cell count reference ranges are not reported, since discordance with absolute values may lead to misinterpretation of CBC data. Current Interpretive Data was last revised on 2017. Testing performed by: [facility], [address] [place] [address]., [address] Lymphocyte pct 21.4 % CERNER Comment: Interpretive Data Percent cell count reference ranges are not reported, since discordance with absolute values may lead to misinterpretation of CBC data. Current Interpretive Data was last revised on 2017. Testing performed by: [facility], [address] [place] [address]., [address] Monocyte pct 4.8 % CERNER Comment: Interpretive Data Percent cell count reference ranges are not reported, since discordance with absolute values may lead to misinterpretation of CBC data. Current Interpretive Data was last revised on 2017. Testing performed by: [address] [address] Eosinophil pct 1.0 % [facility] Comment: Interpretive Data Percent cell count reference ranges are not reported, since discordance with absolute values may lead to misinterpretation of CBC data. Current Interpretive Data was last revised on 2017. Testing performed by: [address] [address] Basophil pct 0.2 % CERNER Comment: Interpretive Data Percent cell count reference ranges are not reported, since discordance with absolute values may lead to misinterpretation of CBC data. Current Interpretive Data was last revised on 2017. Testing performed by: [address] [address] Blood 12/28/2023 8:08 AM WEAPONS ENGINEER 12/28/2023 12:06 PM WEAPONS ENGINEER us Eran Batista MD LAB BLOOD ORDERABLES F inal Result EMILY [address] Department [place] [address] * (ABNORMAL) Iron profile w/ IBC (12/28/2023 8:08 AM WEAPONS ENGINEER) [facility] Iron 77 35 - 145 mcg/dl Comment:Testing performed by : [facility], [address] [place] [address]., [address] TIBC 427(H) 250 - 400 mcg/dL CERNER Comment:Testing performed by : [facility], [address] [place] [address], [address] Transferrin saturation 18(L) 20 - 50 % CERNER Comment:Testing performed by : [address], [address] Blood 12/28/2023 8:08 AM WEAPONS ENGINEER 12/28/2023 12:06 PM WEAPONS ENGINEER Ana Maria Parkinson MD LAB BLOOD ORDERABLES Final Result [address] Department [place] [address] * (ABNORMAL) CBC with auto differential (12/28/2023 8:08 AM WEAPONS ENGINEER) [facility] WBC 8.4 3.8 - 9.9 K/cumm Comment:Testing performed by : [address], [address] Hgb 11.3(L) 11.9 - 15.5 g/dL CERNER Comment:Testing performed by : [address], [address] Hct 34.9(L) 35.6 - 45.5 % CERNER Comment:Testing performed by : [address], [address] Plt 300 150 - 400 K/cumm CERNER CH Comment:Testing performed by : [address], [address] MPV 10.7 9.1 - 12.3 fL CERNER CH Comment:Testing performed by : [address], [address] RBC 3.87(L) 3.90 - 5.20 M/cumm CERNER CH Comment:Testing performed by : [address], [address] MCV 90.2 81.3 - 96.4 fL [facility] Comment:Testing performed by : [address], [address] MCH 29.2 27.1 - 33.3 pg CERMARY Comment:Testing performed by : [address], [address] MCHC 32.4 32.3 - 35.7 g/dL EMILY Comment:Testing performed by : [address], [address] RDW CV 12.5 11.1 - 14.9 % EMILY Comment:Testing performed by : [address], [address] RDW SD 41.1 35.7 - 48.1 fL EMILY Comment:Testing performed by : [address], [address] NRBC abs 0.00 0.00 - 0.01 K/cumm EMILY Comment:Testing performed by : [address], [address] Blood 12/28/2023 8:08 AM WEAPONS ENGINEER 12/28/2023 12:06 PM WEAPONS ENGINEER Eran Batista MD LAB BLOOD ORDERABLES F inal Result [address] Department [place] [address] * Hepatitis panel, acute Blood (12/28/2023 8:08 AM WEAPONS ENGINEER) Hep A IgM Nonreactive Nonreactive Comment: Interpretive Data: If Hep A IgM Ab is reported as Equivocal, a new sample should be drawn in two weeks for testing. Current interpretive data was last revised on 19. Testing performed by: [address], [address] Hep B core IgM Nonreactive Nonreactive EMILY Comment: Interpretive Data If HepB Core IgM Ab is reported as Equivocal, a new sample should be drawn in two weeks for testing. Current interpretive data was last revised on 19. Testing performed by: [facility], [address] [place] [address]., [address] Hep C Ab Nonreactive Nonreactive EMILY Comment: Interpretive Data Nonreactive: Antibodies to HCV not detected. Does NOT exclude the possibility of recent exposure to HCV. Equivocal: Equivocal for HCV antibodies. Supplemental molecular testing will be automatically performed to determine infection status in accordance with current CDC screening recommendations. ?? Reactive: Positive for HCV antibodies. ??This may represent current or past HCV infection. Supplemental molecular testing will be automatically performed to determine ??current infection status in accordance with current CDC screening recommendations. Interpretive data was last revised on 2019. Testing performed by: [facility], [address] [place] [address]., [address] HepBsAg Nonreactive Nonreactive EMILY Comment:Testing performed by : [facility], [address] [place] [address]., [address] Blood 12/28/2023 8:08 AM WEAPONS ENGINEER 12/28/2023 12:06 PM WEAPONS ENGINEER Ana Maria Parkinson MD LAB MICROBIOLOGY - NERAL ORDERABLES Final Result Performing Organization Address City/[facility]/ZIP Co de Phone Number EMILY [id number] [place] [address] * Type and screen (12/28/2023 8:08 AM WEAPONS ENGINEER) ABO Rh A Positive [place], indirect Negative EMILY Blood 12/28/2023 8:08 AM WEAPONS ENGINEER 12/28/2023 12:22 PM WEAPONS ENGINEER Narrative [facility] - 12/28/2023 1:11 PM WEAPONS ENGINEER Has the patient had Daratumumab or Isatuximab in the past 6 months?->Unknown Kassy Rodriguez MD LAB BLOOD BANK TEST O RDERABLES Final Result EMILY [address] [place] [address] * Hepatic function panel (12/28/2023 8:08 AM WEAPONS ENGINEER) [facility] Bilirubin, total 0.2 0.1 - 1.2 mg/dL Comment:Testing performed by : [address] [address] Bilirubin, direct <0.1 0.1 - 0.3 mg/dL CERNER Comment: Lipemia present. ??Results may be affected. Testing performed by: [address] [address] Protein, pl 7.3 6.5 - 8.5 g/dL CERNER Comment:Testing performed by : [facility], [address] [place] [address]., [address] Albumin 3.7 3.5 - 5.0 g/dL CERNER Comment:Testing performed by : [address] [address] Alk phos 72 40 - 130 Units/L CERNER CH Comment:Testing performed by : [address], [address] ALT 8 7 - 45 Units/L CERNER CH Comment:Testing performed by : [address], [address] AST 20 10 - 45 Units/L CERNER Comment:Testing performed by : [address], [address] Blood 12/28/2023 8:08 AM WEAPONS ENGINEER 12/28/2023 12:06 PM WEAPONS ENGINEER Ana Maria Parkinson MD LAB BLOOD ORDERABLES Final Result [facility] [address] Department [place] [address] * (ABNORMAL) Basic metabolic panel (12/28/2023 8:08 AM WEAPONS ENGINEER) [facility] Sodium 135 135 - 145 mmol/L Comment:Testing performed by : [address] [address] Potassium, pl 4.0 3.3 - 4.9 mmol/L CERNER Comment:Testing performed by : [address], [address] Chloride 101 97 - 110 mmol/L [facility] Comment:Testing performed by : [facility], [address] [place] [address]., [address] CO2 23 22 - 32 mmol/L CERNER Comment:Testing performed by : [facility], [address] [place] [address], [address] Anion gap 11 2 - 15 mmol/L [facility] Comment:Testing performed by : [address], [address] BUN 6 6 - 25 mg/dL [facility] Comment:Testing performed by : [address], [address] Creatinine 0.53(L) 0.60 - 1.10 mg/dL [facility] Comment:Testing performed by : [address], [address] Glucose 83 70 - 199 mg/dL [facility] Comment: Interpretive Data Fasting glucose >/= 126 mg/dl is diagnostic for diabetes. ?? Fasting is defined as no caloric intake for at least 8 hours. Fasting glucose between 100 mg/dl to 125 mg/dl is diagnostic of prediabetes. In a patient with classic symptoms of hyperglycemia or hyperglycemic crisis, a random glucose >/= 200 mg/dl is diagnostic for diabetes. In the absence of unequivocal hyperglycemia, results should be confirmed by repeat testing. The classification and Diagnosis of Diabetes Diabetes Care 202; 46: S19-S40. Current interpretive data was last revised 2022. Testing performed by: [address] [address] Calcium 9.2 8.5 - 10.3 mg/dL [facility] Comment:Testing performed by : [address] [address] Blood 12/28/2023 8:08 AM WEAPONS ENGINEER 12/28/2023 12:06 PM WEAPONS ENGINEER Eran Batista MD LAB BLOOD ORDERABLES F inal Result [address] Department [place] [address] * POCT urine glucose and protein (12/26/2023 9:23 AM WEAPONS ENGINEER) Glucose, ur, POC Negative Negative MG/DL Protein, ur, POC Negative Negative Lot Number [id number] Urine 12/26/2023 9:23 AM WEAPONS ENGINEER Kassy Rodriguez MD POINT OF CARE TEST OR DERABLES Final Result * Pap with reflex to High Risk HPV (12/30/2020 10:28 AM WEAPONS ENGINEER) Pap test 12/30/2020 10:2 8 AM WEAPONS ENGINEER 12/30/2020 10:28 AM WEAPONS ENGINEER Narrative 01/01/2021 2:49 PM WEAPONS ENGINEER [facility] Department of [facility]ology [address] [place], [place] [id number] Final Report with Addendum Note to Patients: This report may contain a detailed description of human tissue sent by a health care provider to the laboratory for pathologic evaluation. The content of this report is essential for diagnosis and may provide important critical findings. This information may be unfamiliar to patients to review without a medical professional present. It is advised that the patient review this report in the presence of a health care provider who can answer questions and explain the details. Patient Name: ??MANASA BRANDT Address: ??[address] [place] [address], ?? [place], [place] ??[address] Gender: ??F : ??1990 (Age: 30) Service: ??Laboratory Location: ??Lab Hospital #: ??[id number] Patient Type: ?? Ref Lab Taken: ??12/30/2020 Received: ??12/30/2020 Accessioned:: ??12/31/2020 Reported: ??01/01/2021 Physician(s): MD Kassy Hansen MD Diagnosis: Source of Specimen: ? Imaged Thinprep Pap Test plus HPV - Customer Operations Representative Cytologic Material Specimen Adequacy: ?- Satisfactory for evaluation; endocervical/transformation zone component present General Category: ?- Negative for intraepithelial lesion or malignancy ?? SUNNY Kwok(ASCP) Report Electronically Reviewed and Signed Out By ??SUNNY Kwko(ASCP) ??01/01/2021 14:49:06 ??Addenda: HPV Test Interpretation NEGATIVE for types 16, 18, 31, 33, 35, 39, 45, 51, 52, 56, 58, 59, 66 and 68. Test performed utilizing Gen-NephroGenex Aptima assay. ?? SUNNY Snell(ASCP) ??Report Electronically Reviewed and Signed Out By ??SUNNY Snell(ASCP) ??01/01/2021 09:25:08 ? Specimen(s) Received: A: Imaged Thinprep Pap Test plus HPV - Customer Operations Representative Cytologic Material Clinical History: Last Menstrual Period: 12/18/20 Menstrual History: Previous Negative Pap The Pap test is a screening test used to aid in the detection of cervical cancer and its precursors. ??It should not be the sole means by which malignant and premalignant lesions are diagnosed. ??Both false negative and false positive results may occur. ?? It also has poor sensitivity for the detection of endometrial lesions and should not be used to evaluate suspected endometrial abnormalities. ??For these reasons it is most important to obtain Pap tests at regular intervals. The performance characteristics of some immunohistochemical stains, fluorescence in-situ hybridization tests and immunophenotyping by flow cytometry cited in this report (if any) were determined by the Surgical Pathology Department at [facility] as part of an ongoing quality assurance advisor program and in compliance with federally mandated regulations drawn from the Clinical Laboratory Improvement Act of 1988 (CLIA '88). ??Some of these tests rely on the use of analyte specific reagents and are subject to specific labeling requirements by the US Food and Drug Administration. ??Such diagnostic tests may only be performed in a facility that is certified by the Department of Health and Human Services as a high complexity laboratory under CLIA '88. The FDA has determined that such clearance or approval is not necessary. ??This test is used for clinical purposes. ??It should not be regarded as investigational or for research. ??Nevertheless, federal rules concerning the medical use of analyte specific reagents require that the following disclaimer be attached to the report: This test was developed and its performance characteristics determined by the Surgical Pathology Department [facility]. ??It has not been cleared or approved by the U. S. Food and Drug Administration. Kassy Rodriguez MD LAB CYTOLOGY ORDERABL ES Final Result from Last 3 Months or Most Recently Relevant to Health Maintenance Insurance [facility] CHOICE PLUS C[employer]NA CIGNA CIGNA Advance Directives For more information, please contact: [phone] * Full Code (Latest Code Status on File) Date Activated Date Inactivated Comments 01/11/2022 2:48 PM 01/12/2022 7:21 PM * Full Code Date Activated Date Inactivated Comments 01/11/2022 6:09 AM 01/11/2022 2:48 PM Full CPR i n case of cardiopulmonary arrest * Full Code Date Activated Date Inactivated Comments 10/30/2018 4:07 PM 11/01/2018 7:06 PM * Full Code Date Activated Date Inactivated Comments 10/30/2018 6:07 AM 10/30/2018 4:07 PM Full CPR in ca se of cardiopulmonary arrest Care Teams Airborne And Air Delivery Specialist Relationship Specialty Start Date End Date Ana Maria Parkinson MD [address] [place] [address] PCP - General 12/17/20 Choco Castaneda, PT Physical Therapist Physical Therapy 06/18/21
--- OUTSIDE RECORDS SUMMARY | 2024-03-17 08:05 | XMS_ITS | Referral Summary ---
Author Organization [facility] Address [address] [place] [address] Care Team Providers Care Road Supervisor Of Engines Name Role Phone Unavailable Primary Care Provider Unavailabl e Source Comments [facility],non-owned Affiliates and Associated Physician Practices is amultiple site organization consisting of ambulatory clinics and hospital sitesin [place], [place], [place] and [place]. This disclosure is being madepursuant to the Care Everywhere program and may not contain all information available regarding this patient. Last updated 17.[facility] [employer] Allergies Active Allergy Reactions Criticality Noted Date Comments Pineapple Swelling High 2020 Medications Be aware that medications may not be up to date on this document. Always verify current medications with the patient. No known medications Immunizations Name Administration Dates Next Due FLU VACCINE QUAD IIV4 SPLIT 0.25 ML IM 6 INFLUENZA VACCINE, QUADR. (F LUZONE; FLULAVAL; FLUARIX; AFLURIA QUADRIVALENT; 6MO+), 0.5 ML (IIV4) 12/10/2021 TDAP (7yrs+) 06/03/2016 TDAP, HISTORIC VACCINE 10/28/2021,08/07/2018 Social History Tobacco Use Types Packs/Day Years Used Date Smoking Tobacco: Never Smokeless Tobacco: Never Tobacco Cessation:Counseling Given: Not Answered Alcohol Use Standard Drinks/Week Comments Yes 0 (1 standard drink = 0.6 oz pur e alcohol) social very rarely PHQ-2 Answer Date Recorded Patient Health Questionnaire-2 Score 0 11/09/2022 Sex and Gender Information Value Date Recorded Sex Assigned at Not on file Gender Identity Not on file Sexual Orientation Not on file Last Filed Vital Signs Vital Sign Reading Time Taken Comments Blood Pressure 124/82 11/09/2022 11:14 AM CDT Pulse 96 11/09/2022 11:14 AM CDT Temperature - - Respiratory Rate - - Oxygen Saturation - - Inhaled Oxygen Concentration - - Weight - - Height - - Body Mass Index - - Plan of Treatment Not on file
--- OUTSIDE RECORDS SUMMARY | 2024-03-17 08:05 | XMS_ITS | Clinical Summary ---
Author Organization [facility] Address [address] [place] [address] Care Team Providers Care Riding Teacher Name Role Phone Unavailable Primary Care Provider Unavailabl e Source Comments [facility],non-owned Affiliates and Associated Physician Practices is amultiple site organization consisting of ambulatory clinics and hospital sitesin [place], [place], [place] and [place]. This disclosure is being madepursuant to the Care Everywhere program and may not contain all information available regarding this patient. Last updated 17.[facility] [employer] Allergies Active Allergy Reactions Criticality Noted Date [...] TDAP (7yrs+) 06/03/2016 TDAP, HISTORIC VACCINE 10/28/2021,08/07/2018 Family History Medical History Relation Name Comments CVA Father Hypertension Father Hypertension Mother Relation Name Status Comments Father Mother Social History Tobacco Use Types Packs/Day Years [...] Mass Index - - Plan of Treatment Health Maintenance Due Date Last Done Comments PAP SMEAR 1990 HIV SCREENING 11/07/2003 HEPATITIS C SCREENING 11/02/2006 HEPATITIS B VACCINE (1 of 3 - 19+ 3-dose series) 11/07/2007 COVID-19 VACCINE (2023-2 5 season) 2023 INFLUENZA VACCINE (#1) 2023 2, 12/30/2015 DEPRESSION SCREENING 02/22/2024 11/09/2022 DTAP/TDAP/TD VACCINES (4 - T d or Tdap) 10/29/2031 10/28/2021, 08/07/2018, 06/03/2016 ZOSTER VACCINE (1 of 2) 2038 HIB VACCINE Aged Out No longer eligi ble based on patient's age to complete this topic HPV VACCINE Aged Out No longer eligi ble based on patient's age to complete this topic MENINGOCOCCAL (Group B) VACCINE Aged Out No longer eligible b ased on patient's age to complete this topic MENINGOCOCCAL VACCINE Aged Out No amira toro eligible based on patient's age to complete this topic PNEUMOCOCCAL VACCINE Aged Out No long er eligible based on patient's age to complete this topic
--- OUTSIDE RECORDS SUMMARY | 2024-03-17 08:05 | XMS_ITS | Patient Health Summary ---
Author Organization [facility] Address [address] [place] [address] Care Team Providers Care Shop Hand Name Role Phone Unavailable Primary Care Provider Unavailabl e Note from [facility],non-owned Affiliates and Associated Physician Practices is amultiple site organization consisting of ambulatory clinics and hospital sitesin [place], [place], [place] and [place]. This disclosure is being madepursuant to the Care Everywhere program and may not contain all information available regarding this patient. Last updated 17.[facility] Allergies * Pineapple(Swelling) -High Criticality Medications Be aware that medications may not be up to date on this document. Always verify current medications with the patient. No known medications Immunizations * FLU VACCINE QUAD IIV4 SPLIT 0.25 ML IM(Given 12/30/2015) * INFLUENZA VACCINE, QUADR. (FLUZONE; FLULAVAL; FLUARIX; AFLURIA QUADRIVALENT; 6MO+), 0.5 ML (IIV4)(Given 12/10/2021) * TDAP (7yrs+)(Given 06/03/2016) * TDAP, HISTORIC VACCINE(Given 10/28/2021, 08/07/2018) Social History Tobacco Use Types Packs/Day Years [...] - - Body Mass Index - - Procedures * US PELVIS W TRANSVAG NON OB(Performed 12/02/2022) Performed for Abnormal uterine bleeding (AUB) Results * US PELVIS W TRANSVAG NON OB (12/02/2022 1:57 PM CDT) Anatomical Region Laterality Modality Pelvis Ultrasound 12/02/2022 2:45 PM CDT Impressions 12/02/2022 2:48 PM CDT IMPRESSION: No sonographic evidence of suspicious adnexal mass. No sonographic evidence of suspicious uterine mass. No sonographic explanation for patient's symptoms > Interpreting Provider: Aleta Clark MD on 12/02/2022 2:48 PM Narrative 12/02/2022 2:48 PM CDT PROCEDURE: ??US PELVIS W TRANSVAG NON OB DATE/TIME OF EXAM: ??12/02/2022 1:58 PM CLINICAL INFORMATION: None relevant/not provided if blank. Indication: N93.9: Abnormal uterine and vaginal bleeding, unspecified Additional History: COMPARISON: None. TECHNIQUE: Real time transabdominal and transvaginal pelvic ultrasound was performed by the emergency room technician with DICOM image capture. Grayscale images were obtained. FINDINGS: No discrete uterine mass is seen on transabdominal images. The right ovary measures approximately 2.97 x 1.63 x 2.76 cm in size. No adnexal masses seen on the right. The left ovary is not visualized transabdominally. There is a small volume of free fluid. On transvaginal images, the uterus appears homogeneous in echotexture. It is retroverted. It measures approximately 7.59 x 4.5 x 5.18 cm in size. The endometrium measures approximately 0.43 cm in thickness. It is normal and homogeneous in echotexture. There is a small volume of free fluid adjacent to the uterine fundus and right ovary. The left ovary contains a few peripheral follicles and measures approximately 2.29 x 1.61 x 1.59 cm. The right ovary measures approximately 2.45 x 1.72 x 1.68 cm in size. Upon color Doppler imaging, vascular flow can be demonstrated in both ovaries. Spectral Doppler interrogation was not performed. Procedure Note Aleta Clark MD - 12/02/2022 PROCEDURE: US PELVIS W TRANSVAG NON OB DATE/TIME OF EXAM: 12/02/2022 1:58 PM CLINICAL INFORMATION: None relevant/not provided if blank. Indication: N93.9: Abnormal uterine and vaginal bleeding, unspecified Additional History: COMPARISON: None. TECHNIQUE: Real time transabdominal and transvaginal pelvic ultrasound wasperformed by the emergency room technician with DICOM image capture. Grayscale images were obtained. FINDINGS: No discrete uterine mass is seen on transabdominal images. The rightovary measures approximately 2.97 x 1.63 x 2.76 cm in size. No adnexal masses seen on the right. The left ovary is not visualized transabdominally.There is a small volume of free fluid. On transvaginal images, the uterus appears homogeneous in echotexture.It is retroverted. It measures approximately 7.59 x 4.5 x 5.18 cm in size.The endometrium measures approximately 0.43 cm in thickness. It is normaland homogeneous in echotexture. There is a small volume of free fluidadjacent to the uterine fundus and right ovary. The left ovary contains a few peripheral follicles and measures approximately 2.29 x 1.61 x 1.59 cm. The right ovary measuresapproximately 2.45 x 1.72 x 1.68 cm in size. Upon color Doppler imaging, vascular flow can be demonstrated in both ovaries. Spectral Doppler interrogation wasnot performed. IMPRESSION: No sonographic evidence of suspicious adnexal mass. No sonographic evidence of suspicious uterine mass. No sonographic explanation for patient's symptoms > Interpreting Provider: Aleta Clark MD on 12/02/2022 2:48 PM Nirmala Peña MD US ORDERABLES
--- OUTSIDE RECORDS SUMMARY | 2024-03-17 08:05 | XMS_ITS | Referral Summary ---
Author Organization [facility] Address [address] [place] [address] Care Team Providers Care Bingo Caller Name Role Phone Ana Maria Parkinson MD Primary Care Provide r Choco Castaneda PT Unavailable Unavailab le Encounters Date Type Department Care Team Description 03/07/2024 Plan of Care Documentation [facility] Physical [place] [address] 03/07/2024 8:15 AM DOUBLE END TRIMMER Therapy [facility] Physical Therapy [facility] [place] [address] Carrie Griffith, PT Female genital prolapse, unspecified type 02/24/2024 Orders Only [facility] [address] [place] [address] Kassy Rodriguez MD Encounter for supervision of other normal , third trimester (Primary Dx); 28 weeks gestation of 02/24/2024 11:00 AM DOUBLE END TRIMMER Office Visit [facility] [address] [place] [address] Kassy Rodriguez MD care, subsequent , second trimester (Primary Dx) 02/07/2024 8:30 AM DOUBLE END TRIMMER Ancillary Procedure [facility] [address] [place] [address] Encounter for maternal care for excessive growth in second trimester, single or unspecified fetus; 20 weeks gestation of 01/26/2024 Orders Only [facility] [address] [place] [address] Kassy Rodriguez MD Encounter for maternal care for excessive growth in second trimester, single or unspecified fetus (Primary Dx); 20 weeks gestation of 01/26/2024 9:20 AM DOUBLE END TRIMMER Routine [facility] [address] [place] [address] Kassy Rodriguez MD care, subsequent , second trimester (Primary Dx) 01/09/2024 [facility]phone [facility] [address] [place] [address] Kassy Rodriguez MD Med Refill 12/29/2023 Telephone [facility] [address] [place] [address] Kassy Rodriguez MD 12/28/2023 8:10 AM DOUBLE END TRIMMER Lab [facility] [address] [place] [address] Elevated liver enzymes; SVT (supraventricular tachycardia) (HCC); Pre-procedure lab exam; care, subsequent , first trimester; 13 weeks gestation of 12/26/2023 Orders Only [facility] [address] [place] [address] Kassy Rodriguez MD Female genital prolapse, unspecified type (Primary Dx) 12/26/2023 9:30 AM DOUBLE END TRIMMER Routine [facility] [address] [place] [address] Kassy Rodriguez MD care, subsequent , second trimester (Primary Dx); Elevated liver enzymes from Last 3 Months Allergies Active Allergy Reactions Criticality Noted Date [...] 03/09/2022 Assessment & Plan (03/09/2022 6:28 PM DOUBLE END TRIMMER): Psychiatric assessment was completed during the appointment [...] 02/24/2022 Assessment & Plan (02/24/2022 10:45 PM DOUBLE END TRIMMER): Likely msk ekg in the past negative [...] EMG Assessment & Plan (04/29/2021 10:35 AM DOUBLE END TRIMMER): Xray to evaluate for rotator cuff tear [...] daily Assessment & Plan (03/09/2022 6:27 PM DOUBLE END TRIMMER): Chronic condition with persistent symptoms. Medication changes today: None Insight-oriented, supportive counseling provided. Continued management as discussed Assessment & Plan (02/24/2022 2:40 PM DOUBLE END TRIMMER): Continue with cognitive behavioral therapy Assessment & Plan (02/27/2021 9:04 AM DOUBLE END TRIMMER): Worsening Referral to psychiatry for cognitive behavioral therapy Take xanax 0.25mg prn for panic attacks F/u prn Pain of left upper extremity 02/27/2021 Assessment & Plan (02/27/2021 9:04 AM DOUBLE END TRIMMER): Likely musculoskeletal from carrying son, progressing Recommend [...] annual Assessment & Plan (02/24/2022 10:46 PM DOUBLE END TRIMMER): Ordered CBC, cmp, lipid, TSH w/ reflex [...] 024 Assessment & Plan (02/24/2022 10:44 PM DOUBLE END TRIMMER): New worsening Covid, flu and strep negative Recommend fluids, rest, humidification if needed. She was instructed to call back if symptoms do not improved in a week, or if worsening ones arise. Education provided. 39 weeks gestation of 01/11/2022 02/25/2022 Anemia during in third trimester 10/29/2021 02/25/2022 Antepartum anemia 07/23/2018 12/11/2018 GBS bacteriuria 07/23/2018 12/11/2018 Overview (07/23/2018): Penicillin in labor Immunizations Name Administration Dates Next Due Influenza, Quadrivalent, Spl it, Intramuscular 12/30/2015 Influenza, Quadrivalent, Spl it, Preservative Free, Intramuscular 12/10/2021 Influenza, Unspecified 05/04/2023(Deferr ed: Patient Refused),09/28/2021(Deferred: Patient Refused),05/07/2021(Deferred: Patient Refused),04/29/2021(Deferred: Patient Refused),02/21/2021(Deferred: Patient Refused),11/25/2020(Deferred: Patient Refused),09/21/2020(Deferred: Patient Refused),09/21/2020(Deferred: Patient Refused),09/21/2020(Deferred: Patient Refused),09/21/2020(Deferred: Patient Refused),09/22/2019(Deferred: Patient Refused) Tdap 10/28/2021,08/07/2018,06/03/2016 Social History Tobacco Use Types Packs/Day Years [...] often do you attend chur ch or latter day services? 1 to 4 times per year 01/11/2022 Do you belong to any clubs o r organizations such as sabianism groups, unions, fraternal or athletic groups, or [...] staff should administer the PHQ-9) 0 05/04/2023 [facility] - Occupational Stress Questionnaire Answer Date Recorded [...] place to sleep or slept in a alf (including now)? No 01/11/2022 Housing Stability Vital Sign Answer Romero e Recorded In the last 12 months, was t here a time when you were not able to pay the mortgage or rent on time? No 12/26/2023 In the past 12 months, how m any times have you moved where you were living? 1 12/26/2023 At any time in the past 12 m [facility], were you homeless or living in a alf (including now)? No 12/26/2023 Personal Safety Answer [...] on file Legal Sex Female 8:51 PM DOUBLE END TRIMMER Gender Identity Not on file Sexual Orientation Not on file Occupation Industry Job Start Date Job End Date N/A Not on file Not on file Not on file Last Filed Vital Signs Vital Sign Reading Time Taken Comments Blood Pressure 100/64 02/24/2024 10:42 AM DOUBLE END TRIMMER Pulse 76 12/14/2023 9:46 AM CDT Temperature 36.2 ??C (97.2 ??F) 09/21/2023 10:08 AM C DT Respiratory Rate 16 10/20/2023 9:12 AM CDT Oxygen Saturation 99% 10/20/2023 9:12 AM CDT Inhaled Oxygen Concentration - - Weight 97.1 kg (214 lb) 02/24/2024 10:42 AM DOUBLE END TRIMMER Height 168.9 cm (5' 6.5 ) 12/14/2023 9:46 AM CDT Body Mass Index 34.02 12/14/2023 9:46 AM CDT Plan of Treatment Not on file Medical Devices Implanted Type Area Alarm Adjuster Device Identifier Shelf Expiration Date Model / Serial / Lot [employer] Vascade Mvp 6-12fr Venous Closure [id number] - [id number] Implanted:Qty: 1 on 09/21/2023 by Eran Batista MD at [facility] [employer] [facility] 05/10/2025 [id number] / / [id number] [employer] Vascade Mvp 6-12fr Venous Closure [id number] - [id number] Implanted:Qty: 1 on 09/21/2023 by Eran Batista MD at [facility] [employer] [facility] 05/10/2025 [id number] / / [id number] [employer] Device Vascular Closure Femoral Artery Bioabsorbable Dual Method Vascade 6-7fr Collagen [id number] - [id number] Implanted:Qty: 1 on 09/21/2023 by Eran Batista MD at [facility] 04/19/2025 [id number] / / [id number] [employer] [facility] Device Closure Vascade Od5 Fr Femoral Artery [id number] - [id number] Implanted:Qty: 1 on 09/21/2023 by Eran Batista MD at [facility] 04/26/2025 [id number] / / [id number] Procedures Procedure Name Priority Date/Time Associated Diagnosis Comments POCT URINE GLUCOSE AND PROTEIN Routine 02/24/2024 10:48 AM DOUBLE END TRIMMER care, subsequent , second trimester US OB 14 WEEKS OR OVER Schedule Routine, Read Routine (OP Routine) 02/07/2024 9:10 AM DOUBLE END TRIMMER Encounter for maternal care for excessive growth in second trimester, single or unspecified fetus 20 weeks gestation of POCT URINE GLUCOSE AND PROTEIN Routine 01/26/2024 9:19 AM DOUBLE END TRIMMER care, subsequent , second trimester EGFR Routine 12/28/2023 8:08 AM DOUBLE END TRIMMER SVT (supraventricular tachycardia) (HCC) Pre-procedure lab exam DIFFERENTIAL AUTO Routine 12/28/2023 8: 08 AM DOUBLE END TRIMMER SVT (supraventricular tachycardia) (HCC) Pre-procedure lab exam TYPE AND SCREEN Routine 12/28/2023 8:08 AM DOUBLE END TRIMMER care, subsequent , first trimester 13 weeks gestation of BASIC METABOLIC PANEL Routine 12/28/2023 8:08 AM DOUBLE END TRIMMER SVT (supraventricular tachycardia) (HCC) Pre-procedure lab exam CBC WITH AUTO DIFFERENTIAL Routine 12/28/2023 8:08 AM DOUBLE END TRIMMER SVT (supraventricular tachycardia) (HCC) Pre-procedure lab exam HEPATIC FUNCTION PANEL Routine 12/28/2023 8:08 AM DOUBLE END TRIMMER Elevated liver enzymes IRON PROFILE W/ IBC Routine 12/28/2023 8 :08 AM DOUBLE END TRIMMER Elevated liver enzymes HEPATITIS PANEL, ACUTE Routine 12/28/2023 8:08 AM DOUBLE END TRIMMER Elevated liver enzymes POCT URINE GLUCOSE AND PROTEIN Routine 12/26/2023 9:23 AM DOUBLE END TRIMMER care, subsequent , second trimester PAP WITH REFLEX TO HIGH RISK HPV Routine 12/30/2020 10:28 AM DOUBLE END TRIMMER from Last 3 Months or Most Recently Relevant to Health Maintenance Results * POCT urine glucose and protein (02/24/2024 10:48 AM DOUBLE END TRIMMER) Glucose, ur, POC Negative Negative MG/DL Protein, ur, POC Negative Negative Lot Number [id number] Urine 02/24/2024 10:4 8 AM DOUBLE END TRIMMER Kassy Rodriguez MD POINT OF CARE TEST OR DERABLES Final Result * US Ob 14 Weeks Or Over (02/07/2024 9:10 AM DOUBLE END TRIMMER) Anatomical Region Laterality Modality Abdomen N/A Ultrasound 02/13/2024 11:0 9 AM DOUBLE END TRIMMER Narrative 02/13/2024 11:23 AM DOUBLE END TRIMMER EXAM DESCRIPTION: ?? US OB 14 WEEKS [...] AM T: ??02/13/2024 11:23 AM Report ID: [id number] Reading Location: ??[id number] Procedure Note Jake Giraldo Jr., MD - [...] Jake Giraldo M.D. CH: BJ Report ID: [id number] Reading Location: [id number] Kassy Rodriguez MD IMG OB US PROCEDURES Final Result * POCT urine glucose and protein (01/26/2024 9:19 AM DOUBLE END TRIMMER) Glucose, ur, POC Negative Negative MG/DL Protein, ur, POC Negative Negative Lot Number [id number] Urine 01/26/2024 9:19 AM DOUBLE END TRIMMER Kassy Rodriguez MD POINT OF CARE TEST OR DERABLES Final Result * eGFR (12/28/2023 8:08 AM DOUBLE END TRIMMER) eGFR >90 >=60 mL/min/1. 73 m2 Comment: [...] of Race in Diagnosing Kidney Disease, JASN 202). The CKD-EPI equation should not be used for patients with unstable renal function and has not been validated in children and those over 70. Current interpretive data was last reviewed 2020. Testing performed by: [facility], [address] [place] [address]., [id number] Blood 12/28/2023 8:08 AM DOUBLE END TRIMMER 12/28/2023 12:23 PM DOUBLE END TRIMMER Eran Batista MD LAB BLOOD ORDERABLES F inal Result [address] Department [place] [address] * Differential, auto (12/28/2023 8:08 AM DOUBLE END TRIMMER) Neutrophil abs 6.0 1.5 - 6.5 K/cumm Comment:Testing performed by : [address] [address] Imm gran abs 0.0 0.0 - 0.1 K/cumm CERNER Comment:Testing performed by : [address] [address] Lymphocyte abs 1.8 0.8 - 3.3 K/cumm CERNER Comment:Testing performed by : [address] [address] Monocyte abs 0.4 0.2 - 0.8 K/cumm CERNER Comment:Testing performed by : [address] [address] Eosinophil abs 0.1 0.0 - 0.5 K/cumm CERNER Comment:Testing performed by : [address] [address] Basophil abs 0.0 0.0 - 0.1 K/cumm CERNER Comment:Testing performed by : [address] [address] Neutrophil pct 72.2 % CERNER Comment: Interpretive Data Percent cell count reference ranges are not reported, since discordance with absolute values may lead to misinterpretation of CBC data. Current Interpretive Data was last revised on 2017. Testing performed by: [address], [address] Imm gran pct 0.4 % CERNER Comment: Interpretive Data Percent cell count reference ranges are not reported, since discordance with absolute values may lead to misinterpretation of CBC data. Current Interpretive Data was last revised on 2017. Testing performed by: [facility], [address] [place] [address]., [address] Lymphocyte pct 21.4 % CERNER Comment: Interpretive Data Percent cell count reference ranges are not reported, since discordance with absolute values may lead to misinterpretation of CBC data. Current Interpretive Data was last revised on 2017. Testing performed by: [facility], [address] [place] [address]., [address] Monocyte pct 4.8 % CERNER Comment: Interpretive Data Percent cell count reference ranges are not reported, since discordance with absolute values may lead to misinterpretation of CBC data. Current Interpretive Data was last revised on 2017. Testing performed by: [address] [address] Eosinophil pct 1.0 % CERNER Comment: Interpretive Data Percent cell count reference ranges are not reported, since discordance with absolute values may lead to misinterpretation of CBC data. Current Interpretive Data was last revised on 2017. Testing performed by: [address] [address] Basophil pct 0.2 % CERNER Comment: Interpretive Data Percent cell count reference ranges are not reported, since discordance with absolute values may lead to misinterpretation of CBC data. Current Interpretive Data was last revised on 2017. Testing performed by: [address] [address] Blood 12/28/2023 8:08 AM DOUBLE END TRIMMER 12/28/2023 12:06 PM DOUBLE END TRIMMER Eran Batista MD LAB BLOOD ORDERABLES F inal Result EMILY [address] Department [place] [address] * (ABNORMAL) Iron profile w/ IBC (12/28/2023 8:08 AM DOUBLE END TRIMMER) Iron 77 35 - 145 mcg/dl Comment:Testing performed by : [address] [address] TIBC 427(H) 250 - 400 mcg/dL CERNER Comment:Testing performed by : [address], [address] Transferrin saturation 18(L) 20 - 50 % CERNER Comment:Testing performed by : [address], [address] Blood 12/28/2023 8:08 AM DOUBLE END TRIMMER 12/28/2023 12:06 PM DOUBLE END TRIMMER Ana Maria Parkinson MD LAB BLOOD ORDERABLES Final Result [address] Department [place] [address] * (ABNORMAL) CBC with auto differential (12/28/2023 8:08 AM DOUBLE END TRIMMER) [facility] WBC 8.4 3.8 - 9.9 K/cumm Comment:Testing performed by : [address], [address] Hgb 11.3(L) 11.9 - 15.5 g/dL CERNER Comment:Testing performed by : [address], [address] Hct 34.9(L) 35.6 - 45.5 % CERNER Comment:Testing performed by : [address], [address] Plt 300 150 - 400 K/cumm CERNER Comment:Testing performed by : [address], [address] MPV 10.7 9.1 - 12.3 fL CERNER Comment:Testing performed by : [address], [address] RBC 3.87(L) 3.90 - 5.20 M/cumm CERNER Comment:Testing performed by : [address], [address] MCV 90.2 81.3 - 96.4 fL CERNER Comment:Testing performed by : [facility], [address] [place] [address]., [address] MCH 29.2 27.1 - 33.3 pg EMILY Comment:Testing performed by : [address] [address] MCHC 32.4 32.3 - 35.7 g/dL EMILY Comment:Testing performed by : [address], [address] RDW CV 12.5 11.1 - 14.9 % EMILY Comment:Testing performed by : [facility], [address] [place] [address], [address] RDW SD 41.1 35.7 - 48.1 fL EMILY Comment:Testing performed by : [address] [address] NRBC abs 0.00 0.00 - 0.01 K/cumm EMILY Comment:Testing performed by : [address], [address] Blood 12/28/2023 8:08 AM DOUBLE END TRIMMER 12/28/2023 12:06 PM DOUBLE END TRIMMER Eran Batista MD LAB BLOOD ORDERABLES F inal Result [address] Department [place] [address] * Hepatitis panel, acute Blood (12/28/2023 8:08 AM DOUBLE END TRIMMER) Hep A IgM Nonreactive Nonreactive Comment: Interpretive Data: If Hep A IgM Ab is reported as Equivocal, a new sample should be drawn in two weeks for testing. Current interpretive data was last revised on 19. Testing performed by: [address], [address] Hep B core IgM Nonreactive Nonreactive EMILY Comment: Interpretive Data If HepB Core IgM Ab is reported as Equivocal, a new sample should be drawn in two weeks for testing. Current interpretive data was last revised on 19. Testing performed by: [address] [place]., [address] Hep C Ab Nonreactive Nonreactive [facility] Comment: Interpretive Data Nonreactive: Antibodies to HCV [...] last revised on 2019. Testing performed by: [facility], [address] [place] [address]., [address] HepBsAg Nonreactive Nonreactive [facility] Comment:Testing performed by : [address] [address] Blood 12/28/2023 8:08 AM DOUBLE END TRIMMER 12/28/2023 12:06 PM DOUBLE END TRIMMER Ana Maria Parkinson MD LAB MICROBIOLOGY - NERAL ORDERABLES Final Result Performing Organization Address City/[facility]/ZIP Co de Phone Number [facility] [address] [facility] [place] [address] * Type and screen (12/28/2023 8:08 AM DOUBLE END TRIMMER) ABO Rh A Positive [place], indirect Negative [facility] Blood 12/28/2023 8:08 AM DOUBLE END TRIMMER 12/28/2023 12:22 PM DOUBLE END TRIMMER Narrative [facility] - 12/28/2023 1:11 PM DOUBLE END TRIMMER Has the patient had Daratumumab or Isatuximab in the past 6 months?->Unknown Kassy Rodriguez MD LAB BLOOD BANK TEST O RDERABLES Final Result Performing Organization Address City/[facility]/ZIP Co de Phone Number [facility] [address] [facility] [place] [address] * Hepatic function panel (12/28/2023 8:08 AM DOUBLE END TRIMMER) Bilirubin, total 0.2 0.1 - 1.2 mg/dL Comment:Testing performed by : [facility], [address] [place] [address]., [address] Bilirubin, direct <0.1 0.1 - 0.3 mg/dL CERNER CH Comment: Lipemia present. ??Results may be affected. Testing performed by: [facility], [address] [place] [address]., [address] Protein, pl 7.3 6.5 - 8.5 g/dL CERNER CH Comment:Testing performed by : [facility], [address] [place] [address], [address] Albumin 3.7 3.5 - 5.0 g/dL CERNER CH Comment:Testing performed by : [address], [address] Alk phos 72 40 - 130 Units/L CERNER CH Comment:Testing performed by : [address], [address] ALT 8 7 - 45 Units/L CERNER CH Comment:Testing performed by : [address], [address] AST 20 10 - 45 Units/L CERNER CH Comment:Testing performed by : [address], [address] Blood 12/28/2023 8:08 AM DOUBLE END TRIMMER 12/28/2023 12:06 PM DOUBLE END TRIMMER Ana Maria Parkinson MD LAB BLOOD ORDERABLES Final Result [facility] [id number] [place] [address] Department [place] [address] * (ABNORMAL) Basic metabolic panel (12/28/2023 8:08 AM DOUBLE END TRIMMER) [facility] Sodium 135 135 - 145 mmol/L Comment:Testing performed by : [address] [address] Potassium, pl 4.0 3.3 - 4.9 mmol/L CERNER CH Comment:Testing performed by : [address], [address] Chloride 101 97 - 110 mmol/L CERNER CH Comment:Testing performed by : [facility], [address] [place] [address]., [address] CO2 23 22 - 32 mmol/L [facility] Comment:Testing performed by : [address] [address] Anion gap 11 2 - 15 mmol/L [facility] Comment:Testing performed by : [facility], [address] [place] [address], [address] BUN 6 6 - 25 mg/dL [facility] Comment:Testing performed by : [facility], [address] [place] [address], [address] Creatinine 0.53(L) 0.60 - 1.10 mg/dL [facility] Comment:Testing performed by : [address], [address] Glucose 83 70 - 199 mg/dL [facility] Comment: Interpretive Data Fasting glucose >/= 126 [...] was last revised 2022. Testing performed by: [address], [address] Calcium 9.2 8.5 - 10.3 mg/dL [facility] Comment:Testing performed by : [address] [address] Blood 12/28/2023 8:08 AM DOUBLE END TRIMMER 12/28/2023 12:06 PM DOUBLE END TRIMMER Eran Batista MD LAB BLOOD ORDERABLES F inal Result EMILY [address] Department [place] [address] * POCT urine glucose and protein (12/26/2023 9:23 AM DOUBLE END TRIMMER) Glucose, ur, POC Negative Negative MG/DL Protein, ur, POC Negative Negative Lot Number [id number] Urine 12/26/2023 9:23 AM DOUBLE END TRIMMER Kassy Rodriguez MD POINT OF CARE TEST OR DERABLES Final Result * Pap with reflex to High Risk HPV (12/30/2020 10:28 AM DOUBLE END TRIMMER) Pap test 12/30/2020 10:2 8 AM DOUBLE END TRIMMER 12/30/2020 10:28 AM DOUBLE END TRIMMER Narrative 01/01/2021 2:49 PM DOUBLE END TRIMMER [facility] Department of Pathology [address] [place] [address] Final Report with Addendum Note to Patients: [...] the details. Patient Name: ??MANASA BRANDT Address: ??[address] [place] [address], ?? [place], [place] ??[address] Gender: ??F : ??1990 (Age: 30) Service: ??Laboratory Location: ??Lab Hospital #: ??[id number] Patient Type: ?? Ref Lab Taken: ??12/30/2020 Received: ??12/30/2020 Accessioned:: ??12/31/2020 Reported: ??01/01/2021 Physician(s): MD Kassy Hansen MD Diagnosis: Source of Specimen: ? Imaged Thinprep Pap Test plus HPV - Director Of Digital Technology Cytologic Material Specimen Adequacy: ?- Satisfactory for evaluation; endocervical/transformation zone component present General Category: ?- Negative for intraepithelial lesion or malignancy ?? SUNNY Kwok(ASCP) Report Electronically Reviewed and Signed Out By ??SUNNY Kwok(ASCP) ??01/01/2021 14:49:06 ??Addenda: HPV Test Interpretation NEGATIVE for types 16, 18, 31, 33, 35, 39, 45, 51, 52, 56, 58, 59, 66 and 68. Test performed utilizing Gen-Probe Aptima assay. ?? SUNNY Snell(ASCP) ??Report Electronically Reviewed and Signed Out By ??SUNNY Snell(ASCP) ??01/01/2021 09:25:08 ? Specimen(s) Received: A: Imaged Thinprep Pap Test plus HPV - Director Of Digital Technology Cytologic Material Clinical History: Last Menstrual Period: [...] determined by the Surgical Pathology Department at [facility] as part of an ongoing quality specialist program and in compliance with federally mandated [...] characteristics determined by the Surgical Pathology Department [facility]. ??It has not been cleared or approved by the U. S. Food and Drug Administration. Kassy Rodriguez MD LAB CYTOLOGY ORDERABL ES Final Result from Last 3 Months or Most Recently Relevant to Health Maintenance Insurance [facility] [employer] [facility] HMO/PPO Address: [address] [address] [place] [address] [employer] Address: [address] [place] [address] [employer] Address: [facility] [id number] [place] [phone] [employer] Advance Directives For more information, please contact: [phone] * Full Code (Latest Code Status on [...] ca se of cardiopulmonary arrest Care Teams Bingo Caller Relationship Specialty Start Date End Date Ana Maria Parkinson MD [address] [place] [address] [place] [address] PCP - General 12/17/20 Choco Castaneda, PT Physical Therapist Physical Therapy 06/18/21
[2024-03-17 08:08] VITALS: BP 100/66; PULSE 105; RESP 20; TEMP 37.1; O2SAT 99
[2024-03-17 08:18] LABS: EDCOVIDSCREEN Negative (Negative); EDINFLUASCREEN Positive (Negative); EDINFLUBSCREEN Negative (Negative)
[2024-03-17 08:22] VITALS: BP 100/56; PULSE 105; RESP 162; TEMP 37.1; O2SAT 99
--- NOTE | 2024-03-17 08:23 | ED.GENADULT ---
HPI - General Adult General Chief complaint: Upper Respiratory Infection Stated complaint: flu,pt is Source: patient Mode of arrival: ambulatory Limitations: no limitations History of Present Illness HPI narrative: Patient presents for evaluation of sick symptoms since yesterday. Symptoms include sinus congestion, rhinorrhea, cough, and fever. No chills, nausea, vomiting, diarrhea, shortness of breath. No recent sick contacts to her knowledge. She is currently , 26 weeks gestation. Denies abdominal pain or vaginal bleeding. She is taking Tylenol and aspirin for symptoms. Related Data Allergies Allergy/AdvReac Type Severity Reaction Status Date / Time No Known Allergies Allergy Verified 02/02/23 12:57 Review of Systems Review of Systems: CONSTITUTIONAL: Reports fever. Denies chills, or sweats. EYES: Denies visual changes, redness, or discharge. ENT: Reports sinus congestion and rhinorrhea. Denies otalgia. CARDIOVASCULAR: Denies chest pain, palpitations, or edema. RESPIRATORY: Reports cough. Denies shortness of breath. GASTROINTESTINAL: Denies abdominal pain, nausea, vomiting, or diarrhea. GENITOURINARY: Denies dysuria or hematuria. SKIN: Denies rash or itching. MUSCULOSKELETAL: Denies back pain, joint pain, or myalgia. NEUROLOGIC: Denies headache, numbness, dizziness, or weakness. PSYCHIATRIC: Denies anxiety or depression. PMFSH Past Medical History Medical History SVT (supraventricular tachycardia) Surgical History Surgical History History of cardiac radiofrequency ablation Family History Family History Mother Family history non-contributory Social History Social History Smoking status: Never smoker Alcohol intake: current Alcohol use details: social Substance use type: does not use Living arrangements: with family Gender identity (if verbalized by the patient): Female Exam Narrative: GENERAL: Well-appearing, well-nourished, and in no acute distress. HEAD: Normocephalic, atraumatic. EYES: PERRLA and EOMI. ENT: Nares clear, no rhinorrhea or epistaxis. Mucous membranes moist. Oropharynx without tonsillar hypertrophy exudate or other lesions. Bilateral TMs pearly valverde nonbulging NECK: Supple. No adenopathy or masses. No carotid bruits or JVD CHEST: Clear to auscultation. No respiratory distress. No wheezes rales or rhonchi HEART: Regular rate and rhythm. No murmur heard. Normal peripheral pulses. ABDOMEN: Soft, nontender, nondistended, normal active bowel sounds. EXTREMITIES: Normal range of motion. No edema. SKIN: Warm, dry, no rash. NEURO: No focal deficits. Alert and oriented x3. PSYCH: Normal mood and affect. Course Course Emergency Course: This is a 33-year-old female who presented for evaluation of sick symptoms. Influenza a positive. Will treat with tamiflu. Increase fluid intake. Follow up with primary care provider. Go to the ER for worsening symptoms. Pt in agreement with plan of care. Level of Care: Express Care Visit Vital Signs Vital signs: Vital Signs Temperature 37.1 C 03/17/24 08:08 Pulse Rate 105 H 03/17/24 08:08 Respiratory Rate 20 03/17/24 08:08 Blood Pressure 100/66 03/17/24 08:08 Pulse Oximetry 99 03/17/24 08:08 Oxygen Delivery Room Air 03/17/24 08:08 Temperature 36.3 C L 03/17/24 08:22 Pulse Rate 96 03/17/24 08:22 Respiratory Rate 16 03/17/24 08:22 Blood Pressure 134/70 03/17/24 08:22 Pulse Oximetry 99 03/17/24 08:22 Oxygen Delivery Room Air 03/17/24 08:22 Medical Decision Making Vital Signs Vital Signs: Vital Signs Temperature 37.1 C 03/17/24 08:08 Pulse Rate 105 H 03/17/24 08:08 Respiratory Rate 20 03/17/24 08:08 Blood Pressure 100/66 03/17/24 08:08 Pulse Oximetry 99 03/17/24 08:08 Oxygen Delivery Room Air 03/17/24 08:08 Temperature 36.3 C L 03/17/24 08:22 Pulse Rate 96 03/17/24 08:22 Respiratory Rate 16 03/17/24 08:22 Blood Pressure 134/70 03/17/24 08:22 Pulse Oximetry 99 03/17/24 08:22 Oxygen Delivery Room Air 03/17/24 08:22 Lab Data Labs: Lab Results 03/17/24 Range/Units 08:14 POC Influenza A Ag Positive (Negative) POC Influenza B Ag Negative (Negative) POC SARS CoV-2 Ag Negative (Negative) Discharge Plan Discharge Clinical Impression: Influenza A Patient Disposition: Home, Self-Care Condition: Stable Instructions: Antibiotic Form, Influenza (ED) Patient Language: Turkmen Prescriptions: New oseltamivir [Tamiflu] 75 mg capsule 75 mg PO Q12H 5 Days Qty: 10 0RF No Action metoprolol tartrate 25 mg tablet 25 mg PO BID Qty: 60 0RF Follow-up/Referrals: Torin Roy MD [Physician] - Time of Disposition: 08:22
[2024-03-17 08:36] VITALS: RESP 16
== END 2024-03-17 08:28 | disposition home or self-care (01) ==
PROVIDERS: Emergency Provider Nurse Practitioner
DX: J10.1 Influenza due to other identified influenza virus with other respiratory manifestations (principal); Z20.822 Contact with and (suspected) exposure to COVID-19
CPT/HCPCS: 87426; 87804; 99213; G0463